=== PATIENT | female | born 1970 | race Two or more races ===

== ENCOUNTER 2019-04-06 19:24 | Emergency (ER) | payer MEDICAID ==
[~2019-04-06] VITALS: Ht 165.1 cm; Wt 80.7 kg
[~2019-04-06 19:24] MED LIST: ENAL-3 PO; GLIP-115 PO; METF500T PO; NITR-52 PO
[2019-04-06] MEDS ORDERED: SODIUM BICARBONATE 8.4% INJ 50ML SYRINGE IV ONE (19:28)
[2019-04-06] MEDS ORDERED: ATROPINE SULF 1 MG/10ml SYR IV ONE (19:28)
[2019-04-06] MEDS ORDERED: DOPamine 1600mCg/ml 400MG/250ml NSorD5 KIT/BAG IV ONE (19:28)
[2019-04-06] MEDS ORDERED: CALCIUM CHLOR(10%) 100MG/ML 10ML SYRINGE IV ONE (19:28)
[2019-04-06] MEDS ORDERED: EPINEPHrine HCL 1 MG/10 ML SYRG IV ONE ×2 (19:28)
[2019-04-06 19:50] VITALS: BP 138/87
[2019-04-06 20:04] LABS: Eosinophils # (auto) 0.2 uL; Eosinophils % (auto) 2.5 % (0.0-7.0); Mean Corpuscular Volume 88.7 fL (80.0-100.0); Monocytes # (auto) 0.4 uL; Nucleated Red Blood Cells % 0.2 %
[2019-04-06 20:05] LABS: Basophils # (auto) 0.2 uL; Basophils % (auto) 1.7 % (0.0-2.0); Hematocrit 23.3 % (36.0-46.0); Hemoglobin 7.5 g/dL (12.2-16.2); Lymphocytes # (auto) 3.7 uL; Lymphocytes % (auto) 39.1 % (10.0-50.0); Mean Corpuscular Hemoglobin 28.6 pg (28.0-32.0); Mean Corpuscular Hgb Conc. 32.2 g/dL (32.0-36.0); Monocytes % (auto) 4.4 % (0.0-12.0); Neutrophils # (auto) 4.9 uL; Neutrophils % (auto) 52.3 % (37.0-80.0); Platelet Count (auto) 557 10^3/uL (140-450); Red Blood Cells 2.62 10^6/uL (4.0-5.20); Red Cell Distribution Width 15.2 % (11.8-14.3); White Blood Cell 9.3 10^3/uL (4.4-10.8)
[2019-04-06] MEDS ORDERED: NOREPINEPHRINE 8 MG/250ML KIT 250 ML IV ONE (20:09)
[2019-04-06] MEDS ORDERED: SODIUM BICARBONATE 8.4% INJ 50ML SYRINGE ONE (20:10)
[2019-04-06 20:48] LABS: Urine Bacteria NONE SEEN /hpf (None Seen); Urine Blood 1+ /uL (Negative); Urine Hyaline Cast FEW /lpf (0 - 2); Urine Mucus FEW (None Seen); Urine Specific Gravity 1.016 (1.001-1.035); Urine WBC 1 /hpf (0 - 5)
[2019-04-06 20:55] LABS: Calcium 11.2 mg/dL (8.5-10.1); Magnesium 2.3 mg/dL (1.6-2.6)
[2019-04-06 20:58] LABS: Bilirubin, Total 0.2 mg/dL (0.2-1.0); Total Protein 4.2 g/dL (6.4-8.2)
[2019-04-06 21:06] LABS: INR 1.08 (0.9-1.15); Partial Thromboplastin Time 38.8 sec (23.78-33.04); Prothrombin Time 11.5 sec (9.27-12.13)
[2019-04-06 21:24] LABS: BUN/Creatinine Ratio 14.6
[2019-04-06 21:27] LABS: Albumin 0.9 g/dL (3.4-5.0)
[2019-04-06 22:03] LABS: Potassium 4.2 mmol/L (3.5-5.1)
== END 2019-04-07 02:55 ==
LOC: EDBD 19:24 → ER 19:27
DX: I46.9 Cardiac arrest, cause unspecified (principal); E11.9 Type 2 diabetes mellitus without complications; Z79.899 Other long term (current) drug therapy
CPT/HCPCS: 31500; 36415; 36430; 80053; 81001; 82150; 83690; 83735; 83880; 84443; 84484; 84702; 85025; 85610; 85730; 86900; 86901; 86920; 92950; 93005; 94002; 94761; 99285; J0171; J1265; P9016